=== PATIENT | male | born 2000 | race Caucasian/White ===

== ENCOUNTER 2025-01-22 06:38 | Day surgery (SDC) | payer OTHER ==
[2025-01-17 14:11] VITALS: BMI 48.1
[2025-01-22] MEDS ORDERED: AFRIN NASAL MIST 15 ML BOT ONE (07:09)
[2025-01-22] MEDS ORDERED: Bacitracin 1 PK ONE (07:58)
[2025-01-22] MEDS ORDERED: Lidocaine 1% w/Epinephrine 1:200K 30 ML VIAL ONE (07:59)
[2025-01-22] MEDS ORDERED: Ferric Subsulfate 8 ML TOPICAL SOLN ONE (07:59)
[2025-01-22] MEDS ORDERED: Ketorolac Tromethamine 30 MG (1 mL) VIAL ONE (08:07)
[2025-01-22] MEDS ORDERED: PROPOFOL 20 ML ONE ×2 (08:07→08:23)
[2025-01-22] MEDS ORDERED: Ondansetron PF 4 MG/2 ML Vial ONE (08:09)
[2025-01-22] MEDS ORDERED: HYDROcodone/Acetaminophen 5/325 mg Tablet ONE (10:13)
== END 2025-01-22 11:01 | disposition home or self-care (01) ==
LOC: CSHSDC 06:38
PROVIDERS: ATTEND Otolaryngology Plastic Surgery within the Head & Neck
PROC: 0CBPXZZ Excision of Tonsils, External Approach (ICD-10-PCS; principal; 2025-01-22)
DX: J35.3 Hypertrophy of tonsils with hypertrophy of adenoids (principal); J35.01 Chronic tonsillitis; J34.2 Deviated nasal septum; J34.3 Hypertrophy of nasal turbinates; G47.33 Obstructive sleep apnea (adult) (pediatric); E66.9 Obesity, unspecified
CPT/HCPCS: 88304; J1010; J1100; J1885; J2250; J2405; J2704; J3010